=== PATIENT | female | born 1940 | race Caucasian/White ===

== ENCOUNTER 2019-09-26 10:00 | Inpatient (IN) ==
[2019-09-29] MEDS ORDERED: Mag Hydrox/Al Hydrox/Simeth 30 ML UDC PO PRN (15:01)
[2019-09-29] MEDS ORDERED: Scopolamine Patch 1.5 MG PATCH.TD72 TD PRN (15:14)
[2019-09-29] MEDS: *HR* OxyCODONE Immed Rel 5 MG TABLET PO PRN (21:08)
[2019-09-30] MEDS: Amoxicillin 500 MG CAPSULE PO SCH ×4 (00:02→23:28)
[2019-09-30 05:25] LABS: Basophils # 0.1 K/mcL (0.0-0.2); Eosinophils # 0.4 K/mcL (0.0-0.6); Hematocrit 30.7 % (35.3-44.9); Hemoglobin 10.1 g/dL (11.5-15.4); Immature Granulocytes % 0.2 % (0-4); Lymphocytes # 1.7 K/mcL (0.6-4.6); Mean Corpuscular HGB Conc 32.9 g/dL (31.6-35.5); Mean Corpuscular Hemoglobin 31.6 pg (28.0-33.3); Mean Corpuscular Volume 95.9 fL (83.0-100.0); Mean Platelet Volume 9.3 fL (9.4-12.4); Monocytes # 0.7 K/mcL (0.0-1.3); Monocytes % 12.1 %; Neutrophils # 3.2 K/mcL (1.6-8.9); Platelet Count 276 K/mcL (140-400); Red Cell Distribution Width 11.9 % (11.5-14.5); Segmented Neutrophils % 52.7 %
[2019-09-30 05:44] LABS: Alanine Aminotransferase 17 Units/L (7-52); Albumin 3.2 g/dL (3.5-5.7); Albumin/Globulin Ratio 1.4 (1.1-2.2); Alkaline Phosphatase 85 Units/L (34-104); Aspartate Amino Transferase 24 Units/L (13-39); BUN/Creatinine Ratio 18 (6-26); Bilirubin,Total 0.4 mg/dL (0.3-1.0); Blood Urea Nitrogen 10 mg/dL (8-23); Calcium 8.5 mg/dL (8.6-10.3); Carbon Dioxide 25 mEq/L (23-29); Chloride 106 mEq/L (98-107); Globulin 2.3 g/dL (2.4-3.5); Glucose 111 mg/dL (70-105); Osmolality,Calculated 286 (280-300); Potassium 3.8 mEq/L (3.5-5.1); Sodium 138 mEq/L (136-145); Total Protein 5.5 g/dL (6.4-8.9); eGFR For African Americans > 60 (> 60); eGFR For Non-African Americans > 60 (> 60)
[2019-09-30] MEDS: *HR* Enoxaparin 40 MG/0.4 ML SYRINGE SQ SCH (06:27)
[2019-09-30] MEDS: Celecoxib 200 MG CAPSULE PO SCH (09:43)
[2019-09-30] MEDS: Cholecalciferol (D-3) 1,000 UNIT (25MCG) TABLET PO SCH (09:44)
[2019-09-30] MEDS: Ondansetron ODT 4 MG TAB.RAPDIS SL PRN (10:53)
[2019-10-01] MEDS: *HR* Enoxaparin 40 MG/0.4 ML SYRINGE SQ SCH (05:13)
[2019-10-01] MEDS: Ondansetron ODT 4 MG TAB.RAPDIS SL PRN (08:57)
[2019-10-01] MEDS: Amoxicillin 500 MG CAPSULE PO SCH ×3 (08:58→23:45)
[2019-10-01] MEDS: Celecoxib 200 MG CAPSULE PO SCH (08:58)
[2019-10-01] MEDS: Cholecalciferol (D-3) 1,000 UNIT (25MCG) TABLET PO SCH (08:58)
[2019-10-01] MEDS: *HR* OxyCODONE Immed Rel 5 MG TABLET PO PRN ×2 (15:21→20:50)
[2019-10-02] MEDS: *HR* OxyCODONE Immed Rel 5 MG TABLET PO PRN (04:01)
[2019-10-02] MEDS: *HR* Enoxaparin 40 MG/0.4 ML SYRINGE SQ SCH (06:13)
[2019-10-02] MEDS: Celecoxib 200 MG CAPSULE PO SCH (08:48)
[2019-10-02] MEDS: Amoxicillin 500 MG CAPSULE PO SCH ×2 (08:48→16:00)
[2019-10-02] MEDS: Cholecalciferol (D-3) 1,000 UNIT (25MCG) TABLET PO SCH (08:49)
[2019-10-02] MEDS: Ondansetron ODT 4 MG TAB.RAPDIS SL PRN (08:51)
[2019-10-02] MEDS ORDERED: Bisacodyl 10 MG RECTAL SUPPOSITORY RC ONE (15:23)
[2019-10-03] MEDS: *HR* OxyCODONE Immed Rel 5 MG TABLET PO PRN ×3 (02:07→22:02)
[2019-10-03] MEDS: Ondansetron ODT 4 MG TAB.RAPDIS SL PRN (02:07)
[2019-10-03] MEDS: *HR* Enoxaparin 40 MG/0.4 ML SYRINGE SQ SCH (05:10)
[2019-10-03] MEDS: Cholecalciferol (D-3) 1,000 UNIT (25MCG) TABLET PO SCH (08:10)
[2019-10-03] MEDS: Celecoxib 200 MG CAPSULE PO SCH (08:10)
[2019-10-04] MEDS: *HR* Enoxaparin 40 MG/0.4 ML SYRINGE SQ SCH (05:12)
[2019-10-04] MEDS: Cholecalciferol (D-3) 1,000 UNIT (25MCG) TABLET PO SCH (11:20)
[2019-10-04] MEDS: Celecoxib 200 MG CAPSULE PO SCH (11:21)
[2019-10-04] MEDS: *HR* OxyCODONE Immed Rel 5 MG TABLET PO PRN (21:03)
[2019-10-05] MEDS: *HR* Enoxaparin 40 MG/0.4 ML SYRINGE SQ SCH (05:24)
[2019-10-05] MEDS: Cholecalciferol (D-3) 1,000 UNIT (25MCG) TABLET PO SCH (08:13)
[2019-10-05] MEDS: Celecoxib 200 MG CAPSULE PO SCH (08:13)
[2019-10-05] MEDS: *HR* OxyCODONE Immed Rel 5 MG TABLET PO PRN ×2 (11:06→20:32)
[2019-10-06] MEDS: *HR* Enoxaparin 40 MG/0.4 ML SYRINGE SQ SCH (05:49)
[2019-10-06] MEDS: Celecoxib 200 MG CAPSULE PO SCH (08:05)
[2019-10-06] MEDS: Cholecalciferol (D-3) 1,000 UNIT (25MCG) TABLET PO SCH (08:05)
[2019-10-06] MEDS: *HR* OxyCODONE Immed Rel 5 MG TABLET PO PRN ×2 (08:10→20:29)
[2019-10-06] MEDS ORDERED: amLODIPine 5 MG TABLET PO SCH (09:00)
[2019-10-07] MEDS: *HR* Enoxaparin 40 MG/0.4 ML SYRINGE SQ SCH (05:20)
[2019-10-07] MEDS: Cholecalciferol (D-3) 1,000 UNIT (25MCG) TABLET PO SCH (08:15)
[2019-10-07] MEDS: Celecoxib 200 MG CAPSULE PO SCH (08:15)
[2019-10-07] MEDS: *HR* OxyCODONE Immed Rel 5 MG TABLET PO PRN ×2 (17:05→21:11)
[2019-10-08] MEDS: *HR* Enoxaparin 40 MG/0.4 ML SYRINGE SQ SCH (05:05)
[2019-10-08 06:09] LABS: Basophils # 0.1 K/mcL (0.0-0.2); Eosinophils # 0.3 K/mcL (0.0-0.6); Hematocrit 31.1 % (35.3-44.9); Hemoglobin 10.4 g/dL (11.5-15.4); Immature Granulocytes % 0.2 % (0-4); Lymphocytes # 1.8 K/mcL (0.6-4.6); Lymphocytes % 35.1 %; Mean Corpuscular HGB Conc 33.4 g/dL (31.6-35.5); Mean Corpuscular Hemoglobin 32.1 pg (28.0-33.3); Mean Platelet Volume 9.4 fL (9.4-12.4); Monocytes # 0.6 K/mcL (0.0-1.3); Monocytes % 11.6 %; Neutrophils # 2.4 K/mcL (1.6-8.9); Platelet Count 343 K/mcL (140-400); Red Blood Count 3.24 M/mcL (3.82-4.97); Red Cell Distribution Width 12.1 % (11.5-14.5); Segmented Neutrophils % 47.1 %; White Blood Count 5.2 K/mcL (4.3-11.1)
[2019-10-08 06:30] LABS: BUN/Creatinine Ratio 25 (6-26); Blood Urea Nitrogen 14 mg/dL (8-23); Calcium 8.7 mg/dL (8.6-10.3); Carbon Dioxide 27 mEq/L (23-29); Chloride 106 mEq/L (98-107); Glucose 100 mg/dL (70-105); Osmolality,Calculated 287 (280-300); Potassium 3.9 mEq/L (3.5-5.1); Sodium 138 mEq/L (136-145); eGFR For African Americans > 60 (> 60); eGFR For Non-African Americans > 60 (> 60)
[2019-10-08] MEDS: Celecoxib 200 MG CAPSULE PO SCH (07:54)
[2019-10-08] MEDS: Cholecalciferol (D-3) 1,000 UNIT (25MCG) TABLET PO SCH (07:54)
[2019-10-08] MEDS: *HR* OxyCODONE Immed Rel 5 MG TABLET PO PRN (20:50)
[2019-10-09] MEDS: *HR* Enoxaparin 40 MG/0.4 ML SYRINGE SQ SCH (05:25)
[2019-10-09 07:06] VITALS: BP 131/75
[2019-10-09] MEDS: Celecoxib 200 MG CAPSULE PO SCH (08:24)
[2019-10-09] MEDS: Cholecalciferol (D-3) 1,000 UNIT (25MCG) TABLET PO SCH (08:24)
== END 2019-10-09 11:30 | disposition home health service (06) | DRG 560 ==
LOC: INPGRE 09-29 13:40

== ENCOUNTER 2020-12-14 12:24 | Inpatient (IN) ==
[2020-12-14] MEDS ORDERED: Naloxone 0.4 MG/ML INJ IVP PRN (16:00)
[2020-12-14] MEDS: Ondansetron 4 MG/2 ML VIAL IVP PRN (16:23)
[2020-12-14] MEDS: Sucralfate 1 GM TABLET PO SCH (16:26)
[2020-12-14] MEDS: Benzonatate 100 MG CAPSULE PO PRN (17:05)
[2020-12-14] MEDS: Celecoxib 200 MG CAPSULE PO SCH (21:25)
[2020-12-14] MEDS: Acetaminophen 325 MG TABLET PO PRN (21:36)
[2020-12-15 05:05] LABS: Hematocrit 35.8 % (35.3-44.9); Hemoglobin 12.3 g/dL (11.5-15.4); Mean Corpuscular HGB Conc 34.4 g/dL (31.6-35.5); Mean Corpuscular Volume 93.2 fL (83.0-100.0); Mean Platelet Volume 9.6 fL (9.4-12.4); Platelet Count 173 K/mcL (140-400); Red Blood Count 3.84 M/mcL (3.82-4.97); Red Cell Distribution Width 11.6 % (11.5-14.5); White Blood Count 2.6 K/mcL (4.3-11.1)
[2020-12-15 05:17] LABS: BUN/Creatinine Ratio 13 (6-26); Blood Urea Nitrogen 9 mg/dL (8-23); Calcium 8.4 mg/dL (8.6-10.3); Carbon Dioxide 25 mEq/L (23-29); Chloride 104 mEq/L (98-107); Glucose 97 mg/dL (70-105); Magnesium 1.9 mg/dL (1.6-2.6); Osmolality,Calculated 281 (280-300); Potassium 3.8 mEq/L (3.5-5.1); Sodium 136 mEq/L (136-145); eGFR For African Americans > 60 (> 60); eGFR For Non-African Americans > 60 (> 60)
[2020-12-15] MEDS: *HR* Enoxaparin 40 MG/0.4 ML SYRINGE SQ SCH (05:46)
[2020-12-15] MEDS: Sucralfate 1 GM TABLET PO SCH ×2 (08:35→17:23)
[2020-12-15] MEDS: Celecoxib 200 MG CAPSULE PO SCH ×2 (08:35→21:22)
[2020-12-15] MEDS: Cholecalciferol (D-3) 1,000 UNIT (25MCG) TABLET PO SCH (08:35)
[2020-12-15] MEDS: Ondansetron 4 MG/2 ML VIAL IVP PRN (11:10)
[2020-12-15] MEDS: Doxycycline 100 MG in 0.9 % Sodium Chloride Mini Bag 100 ML IVPB SCH (17:24)
[2020-12-15] MEDS: dexAMETHasone 4 MG TABLET PO SCH (17:24)
[2020-12-15] MEDS ORDERED: Doxycycline 100 MG CAPSULE PO SCH (21:00)
[2020-12-16] MEDS: Ondansetron 4 MG/2 ML VIAL IVP PRN (05:01)
[2020-12-16] MEDS: *HR* Enoxaparin 40 MG/0.4 ML SYRINGE SQ SCH (05:01)
[2020-12-16] MEDS: Doxycycline 100 MG in 0.9 % Sodium Chloride Mini Bag 100 ML IVPB SCH ×2 (05:02→17:28)
[2020-12-16 05:09] LABS: Hematocrit 39.9 % (35.3-44.9); Hemoglobin 13.7 g/dL (11.5-15.4); Lymphocytes # 0.5 K/mcL (0.6-4.6); Lymphocytes % 36.2 %; Mean Corpuscular HGB Conc 34.3 g/dL (31.6-35.5); Mean Corpuscular Hemoglobin 31.4 pg (28.0-33.3); Mean Corpuscular Volume 91.3 fL (83.0-100.0); Mean Platelet Volume 9.7 fL (9.4-12.4); Monocytes # 0.1 K/mcL (0.0-1.3); Monocytes % 4.7 %; Neutrophils # 0.8 K/mcL (1.6-8.9); Platelet Count 200 K/mcL (140-400); Red Blood Count 4.37 M/mcL (3.82-4.97); Red Cell Distribution Width 11.4 % (11.5-14.5); Segmented Neutrophils % 59.1 %; White Blood Count 1.3 K/mcL (4.3-11.1)
[2020-12-16 05:27] LABS: BUN/Creatinine Ratio 15 (6-26); Blood Urea Nitrogen 9 mg/dL (8-23); Calcium 8.9 mg/dL (8.6-10.3); Carbon Dioxide 24 mEq/L (23-29); Chloride 105 mEq/L (98-107); Glucose 167 mg/dL (70-105); Osmolality,Calculated 284 (280-300); Potassium 4.5 mEq/L (3.5-5.1); Sodium 136 mEq/L (136-145); eGFR For African Americans > 60 (> 60); eGFR For Non-African Americans > 60 (> 60)
[2020-12-16 08:50] LABS: C-Reactive Protein < 5 mg/L (Less than 10)
[2020-12-16] MEDS: Cholecalciferol (D-3) 1,000 UNIT (25MCG) TABLET PO SCH (09:34)
[2020-12-16] MEDS: Celecoxib 200 MG CAPSULE PO SCH ×2 (09:35→20:48)
[2020-12-16] MEDS: Sucralfate 1 GM TABLET PO SCH ×2 (09:35→17:28)
[2020-12-16] MEDS: dexAMETHasone 4 MG TABLET PO SCH (09:35)
[2020-12-16] MEDS: Benzonatate 100 MG CAPSULE PO PRN (21:02)
[2020-12-17] MEDS: Doxycycline 100 MG in 0.9 % Sodium Chloride Mini Bag 100 ML IVPB SCH ×2 (04:57→20:04)
[2020-12-17 05:11] LABS: Basophils % 0.7 %; Hematocrit 38.8 % (35.3-44.9); Hemoglobin 13.8 g/dL (11.5-15.4); Lymphocytes # 0.5 K/mcL (0.6-4.6); Lymphocytes % 35.8 %; Mean Corpuscular HGB Conc 35.6 g/dL (31.6-35.5); Mean Corpuscular Hemoglobin 33.7 pg (28.0-33.3); Mean Corpuscular Volume 94.9 fL (83.0-100.0); Mean Platelet Volume 10.6 fL (9.4-12.4); Monocytes # 0.1 K/mcL (0.0-1.3); Monocytes % 5.1 %; Neutrophils # 0.8 K/mcL (1.6-8.9); Platelet Count 190 K/mcL (140-400); Red Blood Count 4.09 M/mcL (3.82-4.97); Red Cell Distribution Width 11.5 % (11.5-14.5); Segmented Neutrophils % 58.4 %; White Blood Count 1.4 K/mcL (4.3-11.1)
[2020-12-17 05:17] LABS: Anisocytosis 1+ (Not Present); Platelet Estimate Normal (Normal)
[2020-12-17 05:23] LABS: BUN/Creatinine Ratio 21 (6-26); Blood Urea Nitrogen 13 mg/dL (8-23); Calcium 8.9 mg/dL (8.6-10.3); Carbon Dioxide 20 mEq/L (23-29); Chloride 106 mEq/L (98-107); Glucose 148 mg/dL (70-105); Osmolality,Calculated 283 (280-300); Potassium 4.4 mEq/L (3.5-5.1); Sodium 135 mEq/L (136-145); eGFR For African Americans > 60 (> 60); eGFR For Non-African Americans > 60 (> 60)
[2020-12-17] MEDS: *HR* Enoxaparin 40 MG/0.4 ML SYRINGE SQ SCH (06:08)
[2020-12-17] MEDS: Sucralfate 1 GM TABLET PO SCH ×2 (09:23→15:49)
[2020-12-17] MEDS: dexAMETHasone 4 MG TABLET PO SCH (09:23)
[2020-12-17] MEDS: Celecoxib 200 MG CAPSULE PO SCH ×2 (09:23→20:04)
[2020-12-17] MEDS: Cholecalciferol (D-3) 1,000 UNIT (25MCG) TABLET PO SCH (09:23)
[2020-12-17] MEDS: Piperacillin/Tazobactam 3.375 GM in 0.9 % Sodium Chloride Mini Bag 100 ML IVPB SCH (15:50)
[2020-12-18] MEDS: *HR* Enoxaparin 40 MG/0.4 ML SYRINGE SQ SCH (04:19)
[2020-12-18] MEDS: Doxycycline 100 MG in 0.9 % Sodium Chloride Mini Bag 100 ML IVPB SCH ×2 (04:19→21:01)
[2020-12-18] MEDS: Sucralfate 1 GM TABLET PO SCH ×2 (08:30→16:33)
[2020-12-18] MEDS: dexAMETHasone 4 MG TABLET PO SCH (08:30)
[2020-12-18] MEDS: Acetaminophen 325 MG TABLET PO PRN (08:30)
[2020-12-18] MEDS: Celecoxib 200 MG CAPSULE PO SCH ×2 (08:30→21:01)
[2020-12-18] MEDS: Cholecalciferol (D-3) 1,000 UNIT (25MCG) TABLET PO SCH (08:30)
[2020-12-18] MEDS: Piperacillin/Tazobactam 3.375 GM in 0.9 % Sodium Chloride Mini Bag 100 ML IVPB SCH ×3 (08:30→16:33)
[2020-12-18 23:27] VITALS: BP 176/67
== END 2020-12-18 23:56 | disposition other institution (70) | DRG 177 ==
LOC: INPGRE 16:00
PROVIDERS: ADMIT Family Medicine; ATTEND Family Medicine

== ENCOUNTER 2020-12-18 16:36 | Inpatient (IN) ==
[2020-12-18] MEDS ORDERED: Acetaminophen 325 MG TABLET PO PRN (23:31)
[2020-12-18] MEDS ORDERED: Benzonatate 100 MG CAPSULE PO PRN (23:33)
[2020-12-18] MEDS ORDERED: Ondansetron 4 MG/2 ML VIAL IVP PRN (23:41)
[2020-12-18] MEDS ORDERED: Naloxone 0.4 MG/ML INJ IVP PRN (23:52)
[2020-12-19] MEDS: Piperacillin/Tazobactam 3.375 GM in 0.9 % Sodium Chloride Mini Bag 100 ML IVPB SCH ×2 (00:32→09:07)
[2020-12-19] MEDS ORDERED: Doxycycline 100 MG in 0.9 % Sodium Chloride Mini Bag 100 ML IVPB SCH (06:00)
[2020-12-19] MEDS ORDERED: *HR* Enoxaparin 40 MG/0.4 ML SYRINGE SQ SCH (06:00)
[2020-12-19 07:35] VITALS: BP 122/82
[2020-12-19] MEDS ORDERED: Sucralfate 1 GM TABLET PO SCH (08:00)
[2020-12-19 08:45] LABS: Hematocrit 34.3 % (35.3-44.9); Hemoglobin 11.9 g/dL (11.5-15.4); Mean Corpuscular HGB Conc 34.7 g/dL (31.6-35.5); Mean Corpuscular Hemoglobin 31.8 pg (28.0-33.3); Mean Corpuscular Volume 91.7 fL (83.0-100.0); Mean Platelet Volume 9.9 fL (9.4-12.4); Platelet Count 261 K/mcL (140-400); Red Blood Count 3.74 M/mcL (3.82-4.97); Red Cell Distribution Width 11.7 % (11.5-14.5); White Blood Count 6.6 K/mcL (4.3-11.1)
[2020-12-19] MEDS ORDERED: Cholecalciferol (D-3) 1,000 UNIT (25MCG) TABLET PO SCH (09:00)
[2020-12-19] MEDS ORDERED: dexAMETHasone 4 MG TABLET PO SCH (09:00)
[2020-12-19] MEDS ORDERED: Celecoxib 200 MG CAPSULE PO SCH (09:00)
[2020-12-19 09:36] LABS: Alanine Aminotransferase 26 Units/L (7-52); Albumin 3.4 g/dL (3.5-5.7); Albumin/Globulin Ratio 1.8 (1.1-2.2); Alkaline Phosphatase 56 Units/L (34-104); Aspartate Amino Transferase 22 Units/L (13-39); BUN/Creatinine Ratio 25 (6-26); Bilirubin,Total 0.5 mg/dL (0.3-1.0); Blood Urea Nitrogen 16 mg/dL (8-23); Calcium 8.6 mg/dL (8.6-10.3); Carbon Dioxide 24 mEq/L (23-29); Chloride 108 mEq/L (98-107); Globulin 1.9 g/dL (2.4-3.5); Glucose 116 mg/dL (70-105); Magnesium 1.8 mg/dL (1.6-2.6); Osmolality,Calculated 290 (280-300); Potassium 3.8 mEq/L (3.5-5.1); Sodium 139 mEq/L (136-145); Total Protein 5.3 g/dL (6.4-8.9); eGFR For African Americans > 60 (> 60); eGFR For Non-African Americans > 60 (> 60)
[2020-12-19 13:15] LABS: Troponin I < 0.03 ng/mL (< 0.04)
[2020-12-19 13:30] LABS: C-Reactive Protein < 5 mg/L (Less than 10); Ferritin 416 ng/mL (10-120)
== END 2020-12-19 13:46 | disposition short-term general hospital (02) | DRG 177 ==
LOC: INPGRE 23:56
PROVIDERS: ADMIT Family Medicine; ATTEND Family Medicine

== ENCOUNTER 2021-09-02 09:57 | Inpatient (IN) ==
[2021-09-02] MEDS ORDERED: Benzonatate 100 MG CAPSULE PO PRN (15:28)
[2021-09-02] MEDS ORDERED: Acetaminophen 325 MG TABLET PO PRN (21:27)
[2021-09-02] MEDS: Sucralfate 1 GM TABLET PO SCH (22:13)
[2021-09-02] MEDS: Celecoxib 200 MG CAPSULE PO SCH (22:13)
[2021-09-02] MEDS: Multivit/Ca/Min/Fe/FA 1 TAB TABLET PO SCH (22:13)
[2021-09-02] MEDS: *HR* HYDROcodone/Acet 5/325 mg TABLET PO PRN (22:14)
[2021-09-03 06:14] LABS: Basophils # 0.1 K/mcL (0.0-0.2); Basophils % 1.3 %; Eosinophils # 0.3 K/mcL (0.0-0.6); Eosinophils % 6.1 %; Hematocrit 35.7 % (35.3-44.9); Hemoglobin 11.8 g/dL (11.5-15.4); Immature Granulocytes % 0.2 % (0-4); Lymphocytes # 1.6 K/mcL (0.6-4.6); Lymphocytes % 34.5 %; Mean Corpuscular HGB Conc 33.1 g/dL (31.6-35.5); Mean Corpuscular Hemoglobin 31.3 pg (28.0-33.3); Mean Corpuscular Volume 94.7 fL (83.0-100.0); Mean Platelet Volume 9.6 fL (9.4-12.4); Monocytes # 0.7 K/mcL (0.0-1.3); Monocytes % 15.2 %; Platelet Count 257 K/mcL (140-400); Red Blood Count 3.77 M/mcL (3.82-4.97); Segmented Neutrophils % 42.7 %; White Blood Count 4.6 K/mcL (4.3-11.1)
[2021-09-03] MEDS: *HR* Enoxaparin 40 MG/0.4 ML SYRINGE SQ SCH (06:18)
[2021-09-03 06:35] LABS: BUN/Creatinine Ratio 29 (6-26); Blood Urea Nitrogen 20 mg/dL (8-23); Carbon Dioxide 29 mEq/L (23-29); Chloride 102 mEq/L (98-107); Glucose 94 mg/dL (70-105); Osmolality,Calculated 286 (280-300); Potassium 3.9 mEq/L (3.5-5.1); Sodium 137 mEq/L (136-145); eGFR For African Americans > 60 (> 60); eGFR For Non-African Americans > 60 (> 60)
[2021-09-03] MEDS: Celecoxib 200 MG CAPSULE PO SCH ×2 (08:22→21:02)
[2021-09-03] MEDS: Cholecalciferol (D-3) 1,000 UNIT (25MCG) TABLET PO SCH (08:22)
[2021-09-03] MEDS: Multivit/Ca/Min/Fe/FA 1 TAB TABLET PO SCH (08:22)
[2021-09-03] MEDS: Sucralfate 1 GM TABLET PO SCH ×2 (08:22→16:53)
[2021-09-03] MEDS: *HR* HYDROcodone/Acet 5/325 mg TABLET PO PRN (21:01)
[2021-09-04] MEDS: *HR* Enoxaparin 40 MG/0.4 ML SYRINGE SQ SCH (06:28)
[2021-09-04] MEDS: Sucralfate 1 GM TABLET PO SCH ×2 (08:16→17:14)
[2021-09-04] MEDS: Cholecalciferol (D-3) 1,000 UNIT (25MCG) TABLET PO SCH (08:16)
[2021-09-04] MEDS: Multivit/Ca/Min/Fe/FA 1 TAB TABLET PO SCH (08:16)
[2021-09-04] MEDS: Celecoxib 200 MG CAPSULE PO SCH ×2 (08:25→21:07)
[2021-09-04] MEDS: *HR* HYDROcodone/Acet 5/325 mg TABLET PO PRN ×2 (17:14→21:09)
[2021-09-05] MEDS: *HR* Enoxaparin 40 MG/0.4 ML SYRINGE SQ SCH (05:07)
[2021-09-05] MEDS: Sucralfate 1 GM TABLET PO SCH ×2 (08:11→16:58)
[2021-09-05] MEDS: Cholecalciferol (D-3) 1,000 UNIT (25MCG) TABLET PO SCH (08:11)
[2021-09-05] MEDS: *HR* HYDROcodone/Acet 5/325 mg TABLET PO PRN ×2 (08:12→21:35)
[2021-09-05] MEDS: Celecoxib 200 MG CAPSULE PO SCH ×2 (08:12→21:35)
[2021-09-05] MEDS: Multivit/Ca/Min/Fe/FA 1 TAB TABLET PO SCH (08:12)
[2021-09-06] MEDS: *HR* Enoxaparin 40 MG/0.4 ML SYRINGE SQ SCH (06:40)
[2021-09-06] MEDS: Multivit/Ca/Min/Fe/FA 1 TAB TABLET PO SCH (08:05)
[2021-09-06] MEDS: Cholecalciferol (D-3) 1,000 UNIT (25MCG) TABLET PO SCH (08:05)
[2021-09-06] MEDS: Sucralfate 1 GM TABLET PO SCH ×2 (08:06→17:06)
[2021-09-06] MEDS: Celecoxib 200 MG CAPSULE PO SCH ×2 (08:06→21:11)
[2021-09-06] MEDS: *HR* HYDROcodone/Acet 5/325 mg TABLET PO PRN (21:11)
[2021-09-07] MEDS: *HR* Enoxaparin 40 MG/0.4 ML SYRINGE SQ SCH (06:30)
[2021-09-07 07:07] VITALS: BP 161/77; PULSE 62; RESP 16; TEMP 97.9; O2SAT 98
[2021-09-07] MEDS: Multivit/Ca/Min/Fe/FA 1 TAB TABLET PO SCH (08:27)
[2021-09-07] MEDS: Sucralfate 1 GM TABLET PO SCH (08:27)
[2021-09-07] MEDS: Cholecalciferol (D-3) 1,000 UNIT (25MCG) TABLET PO SCH (08:27)
[2021-09-07] MEDS: Celecoxib 200 MG CAPSULE PO SCH (08:28)
== END 2021-09-07 10:51 | disposition home health service (06) | DRG 556 ==
LOC: INPGRE 19:10
PROVIDERS: ADMIT Family Medicine; ATTEND Family Medicine